=== PATIENT | male | born 1970 | race American Indian/Alaskan Native ===

== ENCOUNTER 2020-06-01 09:02 | Emergency (ER) | payer SELFPAY ==
--- NOTE | 2020-06-01 09:22 | Emergency Department Report ---
ED Shortness of Breath HPI - General Stated Complaint: CHEST PAIN/SOB Time Seen by Provider: 06/01/20 09:18 - History of Present Illness Initial Comments: 50-year-old male, history of hypertension, presents to ED with shortness of breath. Patient denies any chest pain. Patient is a trucking manager. He states he was cranking the jadyn on his truck and then began to feel winded and short of breath. Patient states when he got inside and started driving the shortness of breath worsened. States it felt like there was something sitting on his chest, preventing him from taking a deep breath. However he denies any pain. Patient reports over the last month he has been having progressively worsening dyspnea on exertion. He denies any leg pain or swelling, fever or cough, or known exposure to anyone who was tested positive for COVID-19. Patient denies any tobacco or drug use. Patient was hypertensive en route with EMS. He was given aspirin and sublingual nitro x1 prior to arrival. MD Complaint: shortness of breath -: This morning Severity: moderate Quality: other (Pressure) Consistency: constant Improves With: nothing Worsens With: exertion Treatments Prior to Arrival: none - Related Data Home Oxygen Therapy: No Previous Rx's Medication Instructions Recorded Last Taken Type Furosemide [Lasix] 20 mg PO QDAY #30 tablet 06/01/20 Unknown Rx lisinopriL [Zestril TAB] 20 mg PO QDAY #30 tablet 06/01/20 Unknown Rx Allergies Allergy/AdvReac Type Severity Reaction Status Date / Time No Known Allergies Allergy Unverified 06/01/20 10:24 ED Review of Systems ROS: Stated complaint: CHEST PAIN/SOB Other details as noted in HPI Comment: All other systems reviewed and negative Constitutional: denies: chills, fever Respiratory: SOB with exertion. denies: cough Cardiovascular: denies: chest pain Musculoskeletal: other (Denies leg pain or swelling) ED Past Medical Hx - Medications Home Medications: Home Medications Medication Instructions Recorded Confirmed Last Taken Type Furosemide [Lasix] 20 mg PO QDAY #30 tablet 06/01/20 Unknown Rx lisinopriL [Zestril TAB] 20 mg PO QDAY #30 tablet 06/01/20 Unknown Rx ED Physical Exam - General General appearance: alert, in no apparent distress - Head Head exam: Present: atraumatic, normocephalic - Eye Eye exam: Present: normal appearance, EOMI - ENT ENT exam: Present: mucous membranes moist - Neck Neck exam: Present: normal inspection - Respiratory Respiratory exam: Present: normal lung sounds bilaterally, other (Slightly tachypneic). Absent: respiratory distress - Cardiovascular Cardiovascular Exam: Present: regular rate, normal rhythm - GI/Abdominal GI/Abdominal exam: Present: soft. Absent: distended, tenderness - Extremities Exam Extremities exam: Present: normal inspection. Absent: pedal edema, calf tenderness - Neurological Exam Neurological exam: Present: alert, oriented X3 - Psychiatric Psychiatric exam: Present: normal affect, normal mood - Skin Skin exam: Present: warm, dry, intact, normal color ED Course Vital Signs 06/01/20 06/01/20 06/01/20 09:14 09:16 10:00 Temperature 98.2 F Pulse Rate 102 H 108 H 94 H Pulse Rate [ Anterior Bilateral Throughout] Respiratory 36 H 26 H 29 H Rate Respiratory Rate [Anterior Bilateral Throughout] Blood Pressure 171/128 173/128 168/116 O2 Sat by Pulse 98 95 96 Oximetry 06/01/20 06/01/20 06/01/20 10:30 10:46 11:00 Temperature Pulse Rate 93 H 88 84 Pulse Rate [ Anterior Bilateral Throughout] Respiratory 22 21 16 Rate Respiratory Rate [Anterior Bilateral Throughout] Blood Pressure 168/116 168/116 158/111 O2 Sat by Pulse 99 Oximetry 06/01/20 06/01/20 06/01/20 11:16 11:30 12:00 Temperature Pulse Rate 91 H 85 90 Pulse Rate [ Anterior Bilateral Throughout] Respiratory 19 17 17 Rate Respiratory Rate [Anterior Bilateral Throughout] Blood Pressure 158/111 158/111 166/118 O2 Sat by Pulse Oximetry 06/01/20 06/01/20 06/01/20 12:30 12:44 13:00 Temperature Pulse Rate 85 96 H Pulse Rate [ 84 Anterior Bilateral Throughout] Respiratory 17 27 H Rate Respiratory 18 Rate [Anterior Bilateral Throughout] Blood Pressure 158/111 160/118 O2 Sat by Pulse 100 100 Oximetry 06/01/20 06/01/20 06/01/20 13:30 13:56 14:00 Temperature Pulse Rate 98 H Pulse Rate [ Anterior Bilateral Throughout] Respiratory 24 14 21 Rate Respiratory Rate [Anterior Bilateral Throughout] Blood Pressure 160/118 160/118 174/120 O2 Sat by Pulse 100 84 98 Oximetry ED Medical Decision Making - Lab Data Result diagrams: 06/01/20 09:48 06/01/20 09:48 - EKG Data -: EKG Interpreted by Me EKG shows normal: sinus rhythm, axis, QRS complexes Rate: tachycardia (rate 101) - EKG Data Interpretation: nonspecific ST-T wave monisha, other (Prolonged QT interval) - Radiology Data Radiology results: report reviewed, image reviewed - Medical Decision Making 50-year-old male with increasing dyspnea on exertion x1 month. EKG shows no ST changes. Troponin is negative. BNP and D-dimer slightly elevated. CTA chest shows moderate cardiomegaly and some mild pulmonary edema with small bilateral pleural effusions. O2 sats are normal. No respiratory distress. Blood pressure elevated, IV labetalol and Lasix given. Patient will not require admission at this time. He will be discharged home with Lasix and lisinopril. Outpatient follow-up advised. Patient given physician information for referral. Return precautions given. - Differential Diagnosis Pneumonia, pulmonary edema, COPD, PE Critical care attestation.: If time is entered above; I have spent that time in minutes in the direct care of this critically ill patient, excluding procedure time. ED Disposition Clinical Impression: New onset of congestive heart failure, Uncontrolled hypertension Disposition: TO HOME OR SELFCARE Is pt being admited?: No Condition: Stable Instructions: Heart Failure, Self Care, Heart Failure, Diagnosis, Managing Your Hypertension, Heart Failure Eating Plan, Hypertension (ED) Prescriptions: Furosemide [Lasix] 20 mg PO QDAY #30 tablet lisinopriL [Zestril TAB] 20 mg PO QDAY #30 tablet Referrals: AMI MILES MD [Primary Care Provider] - 3-5 Days MATTHIAS FISH MD [Staff Physician] - 3-5 Days [facility] [Provider Group] - 3-5 Days MELVINA SWENSON MD [Staff Physician] - 3-5 Days Time of Disposition: 14:49
[2020-06-01 10:08] LABS: Basophils % (Auto) 0.6 % (0.0-1.8); Eosinophils # (Auto) 0.3 K/mm3 (0.0-0.4); Eosinophils % (Auto) 5.1 % (0.0-4.3); Hematocrit 38.4 % (35.5-45.6); Lymphocytes # (Auto) 1.5 K/mm3 (1.2-5.4); Lymphocytes % (Auto) 22.6 % (13.4-35.0); Mean Corpuscular HGB Conc 34 % (32-34); Mean Corpuscular Volume 84 fl (84-94); Monocytes # (Auto) 0.8 K/mm3 (0.0-0.8); Monocytes % (Auto) 11.6 % (0.0-7.3); Platelet Count 263 K/mm3 (140-440); Red Blood Count 4.58 M/mm3 (3.65-5.03); Red Cell Distribution Width 14.8 % (13.2-15.2)
[2020-06-01 10:17] LABS: INR 1.07 (0.87-1.13)
[2020-06-01 10:18] LABS: Partial Thromboplastin Time 27.4 Sec. (24.2-36.6)
[2020-06-01 10:29] LABS: BUN/Creatinine Ratio 15; Blood Urea Nitrogen 16 mg/dL (9-20); Hemolysis Index 0
--- NOTE | 2020-06-01 11:10 | XRay Report ---
CHEST 1 VIEW 06/01/2020 10:39 AM INDICATION / CLINICAL INFORMATION: Shortness of breath. COMPARISON: None available. FINDINGS: SUPPORT DEVICES: None. HEART / MEDIASTINUM: No significant abnormality. LUNGS / PLEURA: No significant pulmonary or pleural abnormality. No pneumothorax. ADDITIONAL FINDINGS: No significant additional findings. IMPRESSION: 1. No acute findings. Signer Name: Maldonado Sanford MD Signed: 06/01/2020 11:05 AM Workstation Name: [id number]
[2020-06-01] MEDS ORDERED: ALBUTEROL 2.5 MG/3 ML NEBU IH ONE (11:51)
[2020-06-01] MEDS ORDERED: IPRATROPIUM 0.02% NEBU 2.5 ML IH ONE (11:51)
--- NOTE | 2020-06-01 14:26 | Cat Scan Report ---
CTA CHEST WITH IV CONTRAST INDICATION: sob. TECHNIQUE: Axial CT images were obtained through the chest after injection of 100 cc Omni 300 IV contrast. 3 jayson ne MIP reconstructions were produced. All CT scans at this location are performed using CT dose reduc tion for ALARA by means of automated exposure control. COMPARISON: None available. FINDINGS: PULMONARY ARTERIES: No pulmonary emboli. THORACIC AORTA: No acute abnormality. HEART: Moderately enlarged CORONARY ARTERIES: No significant calcification. PLEURA: Small bilateral pleural effusions No pneumothorax. LYMPH NODES: No significant adenopathy. LUNGS: Mild pulmonary edema. ADDITIONAL FINDINGS: None. UPPER ABDOMEN: No acute findings. SKELETAL STRUCTURES: No significant osseous abnormality. IMPRESSION: 1. No CT evidence for pulmonary embolism. 2. Mild CHF Signer Name: Keanu House MD Signed: 06/01/2020 2:21 PM Workstation Name: [email or web address]
[2020-06-01] MEDS ORDERED: FUROSEMIDE 40 MG/4 ML INJ IV ONE (14:39)
[2020-06-01 16:15] VITALS: BP 146/99
== END 2020-06-01 16:23 | disposition home or self-care (01) ==
LOC: ED 09:02
DX: I11.0 Hypertensive heart disease with heart failure (principal); I50.9 Heart failure, unspecified; Z79.899 Other long term (current) drug therapy
CPT/HCPCS: 36415; 71045; 71275; 80048; 83880; 84484; 85025; 85379; 85610; 85730; 93005; 94640; 96374; 96375; 99285; J1940; Q9967; 94644